=== PATIENT | male | born 1940 | race Caucasian/White ===

== ENCOUNTER → 2021-09-02 | Outpatient (CLI) | payer MEDICARE, SELFPAY ==
--- NOTE | 2021-09-01 | LES_PTH ---
PATIENT: ALEXANDRA HORNE LOC: [facility] U#:[id number] AGE/SX: 81/M ROOM: RE09/02/[address]: Dr. Pravin Stein MD : 1940 BED: DIS: 09/02/2021 SPEC #: [id number] RECD: 09/02/21 12:18 STATUS: JENNIFER CRUZDonya #: [id number] LORRAINE: 09/01/21 00:[address]: Pravin Stein DEPT: SURGICAL PATHOLOGY RECD BY: Wiley Hernadez Tissues: Skin of eyelid, NOS Procedures: Surgery Specimen Level III HEADER OPERATION: Excision biopsy PRE-OP DIAGNOSIS: Two lesions, right upper and right lower lid TISSUE SUBMITTED: Two lesions, right upper and right lower lid MICROSCOPIC DIAGNOSIS Lesions of right upper and lower eyelid, biopsy: Two separate epidermal inclusion cysts. AM:alysia 09/05/2021 MICROSCOPIC DESCRIPTION Slides are reviewed. GROSS DESCRIPTION Received in fixative is one container labeled with the patient's name and designated right upper lid and right lower lid. The specimen consists of two irregular fragments of light travis tissue. One fragment measures 0.5 x 0.3 x 0.3 cm. The other fragment measures 0.6 x 0.5 x 0.2 cm. One fragment is inked in black ink. Both fragments are bisected and totally submitted in one cassette. / AM:alysia 09/02/21 TC:3 CPT: 14376 x2
== END | disposition home or self-care (01) ==
LOC: LABSPEC 10:25
PROVIDERS: Visit Provider Ophthalmology
DX: H02.821 Cysts of right upper eyelid (principal); H02.822 Cysts of right lower eyelid
CPT/HCPCS: 88304; 88305